=== PATIENT | female | born 1955 | race African-American/Black ===

== ENCOUNTER 2017-07-15 10:09 | Inpatient (IN) | payer MEDICAID ==
[~2017-07-15] VITALS: Ht 160 cm; Wt 83.9 kg
[2017-07-15] MEDS ORDERED: ONDANSETRON HCL 4MG/2ML VIAL IV STA (11:24)
[2017-07-15] MEDS ORDERED: MORPHINE SULFATE 4 MG/ML CPJ (NOT FOR IM USE) IV STA (11:24)
[2017-07-15 11:54] LABS: HEMATOCRIT. 40.7 % (36.0-48.0); HEMOGLOBIN. 13.7 g/dL (12.0-16.0); MEAN CORPUSCULAR HEMOGLOBIN 29.1 pg (28.0-32.0); MEAN CORPUSCULAR VOLUME 86.6 fL (81.0-99.0); MEAN PLATELET VOLUME 7.5 fl (7.4-10.4); PLATELET 508 x1000/uL (130-400); RED CELL DISTRIBUTION WIDTH 14.1 % (11.6-14.6)
[2017-07-15] MEDS ORDERED: IOHEXOL-300 100 ML BOTTLE ONE (11:56)
[2017-07-15 11:58] LABS: PROTHROMBIN TIME 10.6 sec (9.4-11.6)
[2017-07-15 11:59] LABS: CARBON DIOXIDE 30 mEq/L (21-32); CHLORIDE 107 mEq/L (98-107)
[2017-07-15 13:02] LABS: PLATELET ESTIMATE INCREASED
[2017-07-15] MEDS ORDERED: SODIUM CHLORIDE 0.9% 1,000 ML IV ONE (13:15)
[2017-07-15] MEDS ORDERED: POTASSIUM CHLORIDE 20MEQ TABLET SR PO ONE (13:45)
[2017-07-15 14:30] VITALS: BP 109/67
[2017-07-15 14:45] VITALS: BP 109/67
[2017-07-15] MEDS ORDERED: PHEN100C4 PO (15:04)
[2017-07-15] MEDS ORDERED: ONDANSETRON HCL 4MG/2ML VIAL IV PRN (16:49)
[2017-07-15] MEDS ORDERED: MORPHINE SULFATE 4 MG/ML CPJ (NOT FOR IM USE) IV PRN (16:55)
[2017-07-15] MEDS ORDERED: LEVOFLOXACIN 500MG PREMIX 100 ML IV SCH (18:00)
[2017-07-15 18:01] LABS: CLARITY URINE CLEAR (CLEAR); COLOR URINE YELLOW (YELLOW); GLUCOSE URINE NEGATIVE (NEGATIVE); KETONES URINE NEGATIVE (NEGATIVE); LEUKOCYTE ESTERASE URINE NEGATIVE (NEGATIVE); NITRITE URINE NEGATIVE (NEGATIVE); OCCULT BLOOD URINE TRACE (NEGATIVE); PH URINE 6.5 (4.5-8.0); PROTEIN URINE NEGATIVE (NEGATIVE); SPECIFIC GRAVITY URINE 1.069 (1.005-1.030); UROBILINOGEN URINE 0.2 E.U./dL (0.2-1.0)
[2017-07-15] MEDS: DEXT 5%/0.45% NACL KCL 20MEQ/L 1,000 ML IV SCH (18:36)
[2017-07-15 20:00] VITALS: BP 102/63
[2017-07-15] MEDS: METRONIDAZOLE 500 MG PREMIX 100 ML IV SCH (20:43)
[2017-07-15] MEDS: LEVOFLOXACIN 500MG PREMIX 100 ML IV SCH (21:20)
[2017-07-16] VITALS: BP 104/64
[2017-07-16] MEDS: MORPHINE SULFATE 4 MG/ML CPJ (NOT FOR IM USE) IV PRN ×4 (00:55→18:15)
[2017-07-16] MEDS: DEXT 5%/0.45% NACL KCL 20MEQ/L 1,000 ML IV SCH ×3 (02:11→18:16)
[2017-07-16] MEDS: METRONIDAZOLE 500 MG PREMIX 100 ML IV SCH ×3 (03:38→20:00)
[2017-07-16 04:00] VITALS: BP 99/53
[2017-07-16 07:27] LABS: HEMATOCRIT. 36.1 % (36.0-48.0); HEMOGLOBIN. 11.9 g/dL (12.0-16.0); MEAN CORPUSCULAR HEMOGLOBIN 28.8 pg (28.0-32.0); MEAN PLATELET VOLUME 7.7 fl (7.4-10.4); PLATELET 468 x1000/uL (130-400); RED BLOOD CELL COUNT 4.15 mill/uL (4.2-5.4)
[2017-07-16 07:58] LABS: CARBON DIOXIDE 26 mEq/L (21-32); CHLORIDE 109 mEq/L (98-107); HDL CHOLESTEROL 37 mg/dL (40-59); LDL CHOLESTEROL 71 mg/dL (5-100)
[2017-07-16 08:00] VITALS: BP 93/54
[2017-07-16 10:54] LABS: PLATELET ESTIMATE INCREASED
[2017-07-16 12:00] VITALS: BP 109/64
[2017-07-16] MEDS: KETOROLAC 30MG/ML VIAL IV PRN ×2 (15:49→22:31)
[2017-07-16 16:00] VITALS: BP 109/55
[2017-07-16] MEDS: DOCUSATE SODIUM 100MG CAPSULE PO SCH (18:15)
[2017-07-16 20:00] VITALS: BP 106/63
[2017-07-17] VITALS: BP 108/66
[2017-07-17] MEDS: LEVOFLOXACIN 500MG PREMIX 100 ML IV SCH ×2 (00:19→20:14)
[2017-07-17] MEDS: DEXT 5%/0.45% NACL KCL 20MEQ/L 1,000 ML IV SCH ×2 (00:20→17:24)
[2017-07-17 04:00] VITALS: BP 127/80
[2017-07-17] MEDS: KETOROLAC 30MG/ML VIAL IV PRN ×4 (04:44→23:47)
[2017-07-17] MEDS: METRONIDAZOLE 500 MG PREMIX 100 ML IV SCH ×3 (04:44→20:14)
[2017-07-17 08:00] VITALS: BP 125/74
[2017-07-17] MEDS: DOCUSATE SODIUM 100MG CAPSULE PO SCH ×2 (09:00→17:21)
[2017-07-17 12:00] VITALS: BP 125/83
[2017-07-17] MEDS: MORPHINE SULFATE 2 MG/ML CPJ (NOT FOR IM USE) IV PRN ×2 (13:29→20:15)
[2017-07-17 16:00] VITALS: BP 133/81
[2017-07-17 20:00] VITALS: BP 112/70
[2017-07-18] VITALS: BP 106/55
[2017-07-18 04:00] VITALS: BP 131/79
[2017-07-18] MEDS: METRONIDAZOLE 500 MG PREMIX 100 ML IV SCH (05:28)
[2017-07-18] MEDS: DEXT 5%/0.45% NACL KCL 20MEQ/L 1,000 ML IV SCH (05:28)
[2017-07-18] MEDS: KETOROLAC 30MG/ML VIAL IV PRN (06:05)
[2017-07-18 08:00] VITALS: BP 127/72
[2017-07-18] MEDS: DOCUSATE SODIUM 100MG CAPSULE PO SCH (08:19)
[2017-07-18] MEDS: MORPHINE SULFATE 2 MG/ML CPJ (NOT FOR IM USE) IV PRN (08:19)
[2017-07-18] MEDS ORDERED: METR250T PO (10:53)
[2017-07-18 11:16] VITALS: BP 127/72
== END 2017-07-18 11:28 | disposition home or self-care (01) | DRG 244 ==
LOC: ER 11:04 → 6EST 13:25 → ENRESERV 13:25 → EDBEDREQ 13:31
PROVIDERS: ADMIT Internal Medicine; ATTEND Internal Medicine
DX: K57.30 Diverticulosis of large intestine without perforation or abscess without bleeding (principal); E46 Unspecified protein-calorie malnutrition; K76.0 Fatty (change of) liver, not elsewhere classified; I95.9 Hypotension, unspecified; N20.0 Calculus of kidney; E87.6 Hypokalemia; D25.9 Leiomyoma of uterus, unspecified; Z90.49 Acquired absence of other specified parts of digestive tract; J45.909 Unspecified asthma, uncomplicated; I10 Essential (primary) hypertension; E66.9 Obesity, unspecified; N85.8 Other specified noninflammatory disorders of uterus; Z68.32 Body mass index [BMI] 32.0-32.9, adult
CPT/HCPCS: 36415; 71010; 74177; 80053; 80061; 81001; 83036; 83690; 84443; 85025; 85610; 85730; 87086; 93970; 96361; 96374; 96375; 99285; C1893; J1885; J1956; J2270; J2405; J3490; J7030; J7040; J7050; Q9967

== ENCOUNTER 2017-07-28 22:16 | Inpatient (IN) | payer MEDICAID, OTHER ==
[~2017-07-28] VITALS: Ht 160 cm; Wt 80.7 kg
[~2017-07-28 22:16] MED LIST: METR250T PO; PHEN100C4 PO
[2017-07-28] MEDS ORDERED: ONDANSETRON HCL 4MG/2ML VIAL IV STA (22:40)
[2017-07-28] MEDS ORDERED: MORPHINE SULFATE 4 MG/ML CPJ (NOT FOR IM USE) IV STA (22:40)
[2017-07-28] MEDS ORDERED: METRONIDAZOLE 500 MG PREMIX 100 ML IV ONE (22:45)
[2017-07-28] MEDS ORDERED: LEVOFLOXACIN 750MG PREMIX 150 ML IV ONE (22:45)
[2017-07-28] MEDS ORDERED: SODIUM CHLORIDE 0.9% 1000ML BAG (SEPSIS BOLUS) IV ONE (22:45)
[2017-07-28 23:32] LABS: BASOPHILS % 0.3 % (0.0-2.0); EOSINOPHILS % 1.1 % (0.0-5.0); HEMATOCRIT. 41.9 % (36.0-48.0); HEMOGLOBIN. 14.6 g/dL (12.0-16.0); LYMPHOCYTES % 40.6 % (20.0-50.0); MEAN CORPUSCULAR HEMOGLOBIN 29.7 pg (28.0-32.0); MEAN CORPUSCULAR VOLUME 85.4 fL (81.0-99.0); MEAN PLATELET VOLUME 7.8 fl (7.4-10.4); MONOCYTES % 6.8 % (2.0-8.0); NEUTROPHILS % 51.2 % (40.0-76.0); PARTIAL THROMBOPLASTIN TIME 26.2 sec (23.4-31.0); PLATELET 374 x1000/uL (130-400); PROTHROMBIN TIME 10.5 sec (9.4-11.6); RED CELL DISTRIBUTION WIDTH 14.1 % (11.6-14.6)
[2017-07-28 23:40] LABS: CARBON DIOXIDE 27 mEq/L (21-32); CHLORIDE 107 mEq/L (98-107); TROPONIN I < 0.02 ng/mL (0.00-0.04)
[2017-07-29] VITALS (7 sets, daily range): BP systolic 90–108; BP diastolic 48–64
[2017-07-29] MEDS ORDERED: KCL 20MEQ/100ML PREMIX 100 ML IV ONE
[2017-07-29] MEDS ORDERED: POTASSIUM CHLORIDE 20MEQ TABLET SR PO ONE
[2017-07-29] MEDS ORDERED: PHENYTOIN SODIUM 1,000 MG in SODIUM CHLORIDE 0.9% 100 ML IV ONE (00:15)
[2017-07-29] MEDS ORDERED: MORPHINE SULFATE 10 MG/ML CPJ IV NR (00:15)
[2017-07-29 04:34] LABS: CLARITY URINE CLOUDY (CLEAR); COLOR URINE YELLOW (YELLOW); GLUCOSE URINE NEGATIVE (NEGATIVE); KETONES URINE NEGATIVE (NEGATIVE); LEUKOCYTE ESTERASE URINE NEGATIVE (NEGATIVE); NITRITE URINE NEGATIVE (NEGATIVE); OCCULT BLOOD URINE 1+ (NEGATIVE); PROTEIN URINE NEGATIVE (NEGATIVE); SPECIFIC GRAVITY URINE 1.019 (1.005-1.030); UROBILINOGEN URINE 0.2 E.U./dL (0.2-1.0)
[2017-07-29 05:04] LABS: *AMPHETAMINES SCREEN URINE NEGATIVE (NEGATIVE); *BARBITURATES SCREEN URINE NEGATIVE (NEGATIVE); *BENZODIAZEPINES SCREEN URINE PRESUMTIVE POSITIVE (NEGATIVE); *COCAINE SCREEN URINE NEGATIVE (NEGATIVE); CANNABINOID URINE SCREEN NEGATIVE (NEGATIVE); METHADONE URINE SCREEN NEGATIVE (NEGATIVE); OPIATES URINE SCREEN PRESUMTIVE POSITIVE (NEGATIVE); PHENCYCLIDINE URINE SCREEN NEGATIVE (NEGATIVE)
[2017-07-29] MEDS ORDERED: MORPHINE SULFATE 2 MG/ML CPJ (NOT FOR IM USE) IV PRN (09:00)
[2017-07-29] MEDS: MORPHINE SULFATE 10 MG/ML CPJ IV PRN ×4 (09:20→21:55)
[2017-07-29] MEDS ORDERED: METRONIDAZOLE 500 MG PREMIX 100 ML IV SCH (13:45)
[2017-07-29] MEDS ORDERED: LEVOFLOXACIN 500MG PREMIX 100 ML IV SCH ×2 (13:45→16:15)
[2017-07-29] MEDS: ENOXAPARIN 40MG/0.4ML SYR SUBCUT SCH (14:19)
[2017-07-29] MEDS ORDERED: DEXTROSE 50% WATER 50ML SYRINGE IV PRN (14:30)
[2017-07-29] MEDS: SODIUM CHLORIDE 0.9% 1,000 ML IV SCH (15:33)
[2017-07-29] MEDS: METRONIDAZOLE 500 MG PREMIX 100 ML IV SCH ×2 (15:34→21:52)
[2017-07-29] MEDS: PHENYTOIN SODIUM EXTENDED 100MG CAPSULE PO SCH (16:53)
[2017-07-29] MEDS ORDERED: DIAZ2TAB PO (17:03)
[2017-07-29] MEDS ORDERED: BLOOD SUGAR DIAGNOSTIC STRIP TEST SCH (17:10)
[2017-07-29] MEDS ORDERED: INSULIN LISPRO 100 UNITS/ML SUBCUT SCH (17:40)
[2017-07-29] MEDS: DIAZEPAM 2 MG TABLET PO SCH (19:45)
[2017-07-30] VITALS (7 sets, daily range): BP systolic 99–121; BP diastolic 63–70
[2017-07-30] MEDS: IPRATROPIUM/ALBUTEROL 0.5-3(2.5)MG/3ML NEB INH PRN ×2 (00:33→07:32)
[2017-07-30] MEDS: MORPHINE SULFATE 10 MG/ML CPJ IV PRN ×5 (02:31→21:49)
[2017-07-30] MEDS: SODIUM CHLORIDE 0.9% 1,000 ML IV SCH ×2 (04:47→15:06)
[2017-07-30] MEDS: METRONIDAZOLE 500 MG PREMIX 100 ML IV SCH ×3 (06:27→21:54)
[2017-07-30 06:31] LABS: HEMATOCRIT. 35.6 % (36.0-48.0); MEAN CORPUSCULAR HEMOGLOBIN 29.3 pg (28.0-32.0); MEAN CORPUSCULAR VOLUME 87.4 fL (81.0-99.0); MEAN PLATELET VOLUME 8.5 fl (7.4-10.4); PLATELET 285 x1000/uL (130-400); RED BLOOD CELL COUNT 4.07 mill/uL (4.2-5.4); RED CELL DISTRIBUTION WIDTH 13.9 % (11.6-14.6)
[2017-07-30] MEDS: DOCUSATE SODIUM 100MG CAPSULE PO PRN (06:33)
[2017-07-30 07:55] LABS: CARBON DIOXIDE 22 mEq/L (21-32); CHLORIDE 114 mEq/L (98-107)
[2017-07-30] MEDS: PHENYTOIN SODIUM EXTENDED 100MG CAPSULE PO SCH ×3 (08:19→16:55)
[2017-07-30] MEDS: ENOXAPARIN 40MG/0.4ML SYR SUBCUT SCH (08:19)
[2017-07-30] MEDS: DIAZEPAM 2 MG TABLET PO SCH (08:19)
[2017-07-30] MEDS: PANTOPRAZOLE SODIUM 40 MG/VIAL IV SCH (08:19)
[2017-07-30] MEDS: LEVOFLOXACIN 500MG PREMIX 100 ML IV SCH (08:53)
[2017-07-30] MEDS: ONDANSETRON HCL 4MG/2ML VIAL IV PRN ×2 (15:06→21:50)
[2017-07-30 16:55] LABS: ATYPICAL LYMPHOCYTES 2; PLATELET ESTIMATE NORMAL
[2017-07-30] MEDS ORDERED: MINERAL OIL ENEMA 133ML PR NR (19:30)
[2017-07-31 00:01] VITALS: BP 99/66
[2017-07-31] MEDS ORDERED: DEXTROSE 50% WATER 50ML SYRINGE IV PRN (01:15)
[2017-07-31] MEDS: MORPHINE SULFATE 10 MG/ML CPJ IV PRN ×3 (01:21→09:29)
[2017-07-31] MEDS: SODIUM CHLORIDE 0.9% 1,000 ML IV SCH ×3 (02:28→23:37)
[2017-07-31 05:19] VITALS: BP 106/68
[2017-07-31] MEDS: METRONIDAZOLE 500 MG PREMIX 100 ML IV SCH ×3 (05:30→15:53)
[2017-07-31] MEDS: BLOOD SUGAR DIAGNOSTIC STRIP TEST SCH ×4 (06:23→20:29)
[2017-07-31] MEDS: INSULIN LISPRO 100 UNITS/ML SUBCUT SCH ×4 (06:24→20:23)
[2017-07-31 08:00] VITALS: BP 103/64
[2017-07-31] MEDS: LEVOFLOXACIN 500MG PREMIX 100 ML IV SCH (08:21)
[2017-07-31] MEDS: DIAZEPAM 2 MG TABLET PO SCH (08:21)
[2017-07-31] MEDS: PHENYTOIN SODIUM EXTENDED 100MG CAPSULE PO SCH ×4 (08:21→16:55)
[2017-07-31] MEDS: PANTOPRAZOLE SODIUM 40 MG/VIAL IV SCH (08:21)
[2017-07-31] MEDS: ENOXAPARIN 40MG/0.4ML SYR SUBCUT SCH (08:22)
[2017-07-31] MEDS: ACETAMINOPHEN 325MG TABLET PO PRN ×2 (08:33→15:58)
[2017-07-31] MEDS: ONDANSETRON HCL 4MG/2ML VIAL IV PRN (09:34)
[2017-07-31 12:00] VITALS: BP 125/69
[2017-07-31] MEDS: METOCLOPRAMIDE HCL 10MG/2ML VIAL IV PRN (12:49)
[2017-07-31 16:00] VITALS: BP 125/77
[2017-07-31] MEDS: SIMETHICONE 80MG TABLET CHEW PO PRN (19:52)
[2017-07-31 20:00] VITALS: BP 109/74
[2017-07-31] MEDS: CEFEPIME 2,000 MG in DEXT 5% WATER 100 ML IV SCH (23:38)
[2017-07-31] MEDS: MORPHINE SULFATE 4 MG/ML CPJ (NOT FOR IM USE) IV PRN (23:53)
[2017-08-01] VITALS (7 sets, daily range): BP systolic 116–141; BP diastolic 52–81
[2017-08-01] MEDS: METRONIDAZOLE 500 MG PREMIX 100 ML IV SCH ×3 (06:44→21:01)
[2017-08-01] MEDS: SIMETHICONE 80MG TABLET CHEW PO PRN ×3 (06:56→23:20)
[2017-08-01] MEDS: BLOOD SUGAR DIAGNOSTIC STRIP TEST SCH ×4 (07:10→20:58)
[2017-08-01] MEDS: INSULIN LISPRO 100 UNITS/ML SUBCUT SCH ×4 (07:40→21:00)
[2017-08-01] MEDS: DOCUSATE SODIUM 100MG CAPSULE PO PRN (08:16)
[2017-08-01] MEDS: METOCLOPRAMIDE HCL 10MG/2ML VIAL IV PRN ×2 (08:16→17:13)
[2017-08-01] MEDS: ENOXAPARIN 40MG/0.4ML SYR SUBCUT SCH (08:16)
[2017-08-01] MEDS: DIAZEPAM 2 MG TABLET PO SCH (08:22)
[2017-08-01] MEDS: PHENYTOIN SODIUM EXTENDED 100MG CAPSULE PO SCH ×3 (09:11→17:00)
[2017-08-01] MEDS: PANTOPRAZOLE SODIUM 40 MG/VIAL IV SCH (09:11)
[2017-08-01] MEDS: CEFEPIME 2,000 MG in DEXT 5% WATER 100 ML IV SCH ×2 (11:18→23:19)
[2017-08-01] MEDS: SODIUM CHLORIDE 0.9% 1,000 ML IV SCH ×3 (11:18→21:50)
[2017-08-01] MEDS: MORPHINE SULFATE 4 MG/ML CPJ (NOT FOR IM USE) IV PRN ×3 (16:26→23:56)
[2017-08-02 04:00] VITALS: BP 126/79
[2017-08-02] MEDS: METRONIDAZOLE 500 MG PREMIX 100 ML IV SCH ×3 (05:04→21:06)
[2017-08-02] MEDS: BLOOD SUGAR DIAGNOSTIC STRIP TEST SCH ×4 (07:10→21:00)
[2017-08-02] MEDS: INSULIN LISPRO 100 UNITS/ML SUBCUT SCH ×4 (07:28→21:00)
[2017-08-02 08:00] VITALS: BP 130/75
[2017-08-02] MEDS: FAMOTIDINE 20MG/2ML VIAL IV SCH ×2 (08:13→21:06)
[2017-08-02] MEDS: DIAZEPAM 2 MG TABLET PO SCH (08:13)
[2017-08-02] MEDS: PHENYTOIN SODIUM EXTENDED 100MG CAPSULE PO SCH ×4 (08:13→17:00)
[2017-08-02] MEDS: ENOXAPARIN 40MG/0.4ML SYR SUBCUT SCH (08:14)
[2017-08-02] MEDS: SIMETHICONE 80MG TABLET CHEW PO PRN ×2 (09:59→18:59)
[2017-08-02] MEDS: CEFEPIME 2,000 MG in DEXT 5% WATER 100 ML IV SCH ×2 (10:00→23:11)
[2017-08-02 12:00] VITALS: BP 126/75
[2017-08-02] MEDS: SODIUM CHLORIDE 0.9% 1,000 ML IV SCH ×2 (14:20→21:50)
[2017-08-02] MEDS: MORPHINE SULFATE 4 MG/ML CPJ (NOT FOR IM USE) IV PRN ×2 (15:02→21:25)
[2017-08-02 16:00] VITALS: BP 124/72
[2017-08-02 21:00] VITALS: BP 110/49
[2017-08-03 02:17] VITALS: BP 123/70
[2017-08-03] MEDS: MORPHINE SULFATE 4 MG/ML CPJ (NOT FOR IM USE) IV PRN ×2 (02:17→06:45)
[2017-08-03] MEDS: SODIUM CHLORIDE 0.9% 1,000 ML IV SCH (05:50)
[2017-08-03] MEDS: METRONIDAZOLE 500 MG PREMIX 100 ML IV SCH (06:10)
[2017-08-03] MEDS: INSULIN LISPRO 100 UNITS/ML SUBCUT SCH (06:46)
[2017-08-03] MEDS: BLOOD SUGAR DIAGNOSTIC STRIP TEST SCH (06:46)
[2017-08-03 06:48] VITALS: BP 126/75
[2017-08-03 07:52] VITALS: BP 114/73
[2017-08-03] MEDS: PHENYTOIN SODIUM EXTENDED 100MG CAPSULE PO SCH (09:00)
[2017-08-03] MEDS: DIAZEPAM 2 MG TABLET PO SCH (09:00)
[2017-08-03] MEDS: FAMOTIDINE 20MG/2ML VIAL IV SCH (09:28)
[2017-08-03] MEDS: METOCLOPRAMIDE HCL 10MG/2ML VIAL IV PRN (09:28)
[2017-08-03] MEDS: ENOXAPARIN 40MG/0.4ML SYR SUBCUT SCH (09:29)
[2017-08-03] MEDS: CEFEPIME 2,000 MG in DEXT 5% WATER 100 ML IV SCH (11:07)
[2017-08-03 11:30] VITALS: BP 114/73
== END 2017-08-03 12:11 | disposition home or self-care (01) | DRG 244 ==
LOC: ER 22:40 → 5EST 07-29 00:20 → ENRESERV 07-29 04:42 → 8WST 07-29 13:50
PROVIDERS: ADMIT Internal Medicine; ATTEND Internal Medicine
DX: K57.32 Diverticulitis of large intestine without perforation or abscess without bleeding (principal); K76.0 Fatty (change of) liver, not elsewhere classified; E87.1 Hypo-osmolality and hyponatremia; E66.01 Morbid (severe) obesity due to excess calories; E87.6 Hypokalemia; J45.909 Unspecified asthma, uncomplicated; G40.909 Epilepsy, unspecified, not intractable, without status epilepticus; Z90.49 Acquired absence of other specified parts of digestive tract; Z79.899 Other long term (current) drug therapy; Z68.31 Body mass index [BMI] 31.0-31.9, adult; D25.9 Leiomyoma of uterus, unspecified; I95.1 Orthostatic hypotension
CPT/HCPCS: 36415; 70450; 71010; 74000; 74176; 80048; 80053; 80185; 80305; 81001; 82962; 83605; 83880; 84484; 85025; 85610; 85730; 86850; 86900; 87040; 87086; 93005; 93970; 94640; 94664; 96365; 96366; 96367; 96375; 99285; C1893; C9113; J0692; J1165; J1650; J1956; J2270; J2405; J2765; J3480; J3490; J7030; J7050; J7060; J7620

== ENCOUNTER 2018-11-30 05:11 | Emergency (ER) | payer OTHER ==
[~2018-11-30] VITALS: Ht 170.2 cm; Wt 79.0 kg
[~2018-11-30 05:11] MED LIST changes: +ALBU6.7H INH; +ALPR0.5T MT; +HYDR-4009 PO; -METR250T PO
[2018-11-30 05:13] VITALS: BP 124/72
== END 2018-11-30 08:25 | disposition left against medical advice (07) ==
LOC: ER 05:11
DX: R10.9 Unspecified abdominal pain (principal); Z53.21 Procedure and treatment not carried out due to patient leaving prior to being seen by health care provider

== ENCOUNTER 2022-09-05 10:24 | Emergency (ER) | payer MEDICARE, OTHER ==
[~2022-09-05] VITALS: Ht 160 cm; Wt 87.0 kg
[~2022-09-05 10:24] MED LIST changes: -ALBU6.7H INH; +ALBU6.7H15 INH
[2022-09-05 10:27] VITALS: BP 130/76
== END 2022-09-05 12:29 | disposition left against medical advice (07) ==
LOC: ER 10:50
DX: Z53.21 Procedure and treatment not carried out due to patient leaving prior to being seen by health care provider (principal); I49.9 Cardiac arrhythmia, unspecified
CPT/HCPCS: 93005

== ENCOUNTER 2025-08-19 08:17 | Emergency (ER) | payer MEDICARE, MEDICAID ==
[~2025-08-19] VITALS: Ht 160 cm; Wt 79.0 kg
[~2025-08-19 08:17] MED LIST changes: +ALBU18HF2 IH; -ALBU6.7H15 INH; -ALPR0.5T MT; +DIPH25CA83 PO; +FURO20TA4 PO; +GABA-529 PO; -HYDR-4009 PO; +HYDR10CA5 PO; +MELO-106 PO; +PANT20TA17 PO; +SEMA2PEN IJ; +TIZA2CAP7 PO
[2025-08-19 08:21] VITALS: O2SAT 100
[2025-08-19 09:59] VITALS: BP 128/81; PULSE 65; RESP 20; TEMP 36.7; O2SAT 99
== END 2025-08-19 10:10 | disposition home or self-care (01) ==
LOC: ER 08:17 → CMPBEDREQ 11:31
DX: Z48.01 Encounter for change or removal of surgical wound dressing (principal); J45.909 Unspecified asthma, uncomplicated; E11.9 Type 2 diabetes mellitus without complications; Z79.899 Other long term (current) drug therapy; Z90.49 Acquired absence of other specified parts of digestive tract; Z98.51 Tubal ligation status; G40.909 Epilepsy, unspecified, not intractable, without status epilepticus
CPT/HCPCS: 99282